=== PATIENT | female | born 1985 ===

== ENCOUNTER 2018-01-25 02:37 | Inpatient (IN) | payer OTHER ==
[2018-01-25 03:15] VITALS: BMI 36.0
[2018-01-25 03:43] LABS: BASO # 0.1 K/uL (0.0-0.2); BASO % 0.4 % (0.0-2.0); EOS # 0.1 K/uL (0.0-0.7); EOS % 0.8 % (0.0-4.0); HEMOGLOBIN 11.5 g/dL (11.0-16.0); LYMPH # 2.9 K/uL (1.0-4.3); LYMPH % 20.5 % (20.0-40.0); MEAN CELL VOLUME 81.2 fL (81.0-99.0); MEAN CORPUSCULAR HGB CONC 33.3 g/dL (33.0-37.0); MEAN PLATELET VOLUME 7.6 fL (7.2-11.7); MONO % 7.1 % (0.0-10.0); NEUT # 9.9 K/uL (1.8-7.0); NEUT % 71.2 % (50.0-75.0); RBC 4.25 Mil/uL (3.80-5.20); RED CELL DISTRIBUTION WIDTH 17.6 % (11.5-14.5)
[2018-01-25] MEDS ORDERED: Lactated Ringer's 1,000 ML IV ONE (03:43)
[2018-01-25] MEDS ORDERED: Lactated Ringer's 1,000 ML IV SCH (03:45)
[2018-01-25 03:52] LABS: SQUAMOUS EPITHIAL 1 /hpf (0-5); URINE BILIRUBIN NEGATIVE (NEGATIVE); URINE BLOOD 3+ (NEGATIVE); URINE CLARITY Clear (Clear); URINE COLOR Yellow (YELLOW); URINE GLUCOSE (UA) NORMAL (Normal); URINE LEUKOCYTE ESTERASE 1+ Leu/uL (Negative); URINE PROTEIN NEGATIVE (NEGATIVE); URINE UROBILINOGEN NORMAL mg/dL (0.2-1.0)
[2018-01-25 03:57] LABS: ALB/GLOB RATIO 0.9 (1.0-2.1); ALBUMIN 3.1 g/dL (3.5-5.0); ALT/SGPT 19 U/L (9-52); AST/SGOT 18 U/L (14-36); BLOOD UREA NITROGEN 5 mg/dL (7-17); CALCIUM 8.8 mg/dl (8.6-10.4); GFR AFRICAN-AMERICAN > 60; GFR NON-AFRICAN AMERICAN > 60
[2018-01-25] MEDS ORDERED: Bupivacaine HCl/FentaNYL Cit 100 ML EPI ONE ×2 (03:57→06:23)
--- NOTE | 2018-01-25 04:08 | OBHP ---
Datetime: 01/25/2018 04:07 EGA AdmitDate IP: 39.0 IP Indication for Induction: Not Applicable IP Chief Complaint: Uterine contractions; Maternal discomfort Datetime: 01/25/2018 03:57 IP Adm Impression: Term, intrauterine ; Active labor; Intact Membranes IP Admit Plan: Admit to unit; Initiate labor protocol Admit Comment, IP Provider: 39 weeks IUP in Active Labor Tracing reassuring Dr. Oates notified and will admit for vaginal delivery Pelvic Type - PN: Adequate Extremities - PN: Normal Abdomen - PN: Normal Back - PN: Normal Breast - PN: Not Done Lungs - PN: Normal Heart - PN: Normal Thyroid - PN: Normal Neurologic - PN: Normal HEENT - PN: Normal General - PN: Normal Presentation-Admit: Vertex IP Fetus A Comments: FHT's ressuring FHR - Baseline A Provider: 130 Membranes, Provider: Intact Contraction Comments Provider: Q 3-4 mins Gestation - Est Wks by US: 39.0 Vital Signs Provider: Reviewed NICHD Variability Prov Fetus A: Moderate 6-25bpm NICHD Accel Fetus A IP Provider: 10X10 NICHD Decel Fetus A IP Provider: None Dilatation, Provider: 4 Effacement, Provider: 90 Station, Provider: -1 Genitourinary Exam: Normal DTRs - PN: Normal
--- NOTE | 2018-01-25 04:30 | OBADHP ---
Datetime: 01/25/2018 04:07 Admit Comment, IP Provider: 32 yo female G1 with an IUP at 39 weeks Admitted in labor with intact membranes and fo vaginal delivery, per Dr. Oates reviewed and uneventful course GBS Negative Requesting an epidural and Anesthesia aware Labs and IV ordered Anticipate a vaginal delivery Pelvic Type - PN: Adequate Extremities - PN: Normal Abdomen - PN: Normal Back - PN: Normal Breast - PN: Not Done Lungs - PN: Normal Heart - PN: Normal Thyroid - PN: Normal Neurologic - PN: Normal HEENT - PN: Normal General - PN: Normal Presentation-Admit: Vertex FHR - Baseline A Provider: 130 Membranes, Provider: Intact Contraction Comments Provider: 3-4 Gestation - Est Wks by US: 39.0 Vital Signs Provider: Reviewed IP Chief Complaint: Uterine contractions; Maternal discomfort NICHD Variability Prov Fetus A: Moderate 6-25bpm NICHD Accel Fetus A IP Provider: 10X10 NICHD Decel Fetus A IP Provider: None Dilatation, Provider: 4 Effacement, Provider: 100 Station, Provider: -1 Genitourinary Exam: Normal DTRs - PN: Normal EGA AdmitDate IP: 39.0 IP Adm Impression: Term, intrauterine ; Active labor; Intact Membranes IP Admit Plan: Admit to unit; Initiate labor protocol Datetime: 01/25/2018 03:57 IP Fetus A Comments: FHT's ressuring
--- NOTE | 2018-01-25 06:56 | OBPN ---
Datetime: 01/25/2018 06:54 IP Progress Impression: Normal progression of labor IP Procedures: Artificial ROM; Sterile Vag Exam IP Progress Plan: Continue present management Contraction Comments Provider: irrg FHR - Baseline A Provider: 130 IP Progress Note Comment: pt was seen at bed side ve 8/100/0 start pitocin nticipate NICHD Accel Fetus A IP Provider: 15X15 FHR Category Provider Fetus A: Category I NICHD Variability Prov Fetus A: Moderate 6-25bpm Dilatation, Provider: 8 Effacement, Provider: 100 Station, Provider: 0 Datetime: 01/25/2018 06:52 Vital Signs Provider: Reviewed; Within Normal Limits Datetime: 01/25/2018 04:07 Membranes, Provider: Intact Gestation - Est Wks by US: 39.0 Presentation-Admit: Vertex NICHD Decel Fetus A IP Provider: None Datetime: 01/25/2018 03:57 IP Fetus A Comments: FHT's ressuring
--- NOTE | 2018-01-25 06:56 | OBADHP ---
Datetime: 01/25/2018 06:54 FHR - Baseline A Provider: 130 Contraction Comments Provider: irrg NICHD Variability Prov Fetus A: Moderate 6-25bpm NICHD Accel Fetus A IP Provider: 15X15 FHR Category Provider Fetus A: Category I Dilatation, Provider: 8 Effacement, Provider: 100 Station, Provider: 0 Datetime: 01/25/2018 06:52 Admit Comment, IP Provider: at 39+weeks came with c/o ctxs starrted at 12 am, q1-3 min , no vn , no lof+fm.pt is having too much pain obx primi pmh de med pnv all nkda psh de soch de ve 100/0 a/p at 39+week in active abor admit to l_d npo/ivf labs pain manage cot oc and efm anticipate Pelvic Type - PN: Adequate Extremities - PN: Normal Abdomen - PN: Normal Back - PN: Normal Breast - PN: Normal Lungs - PN: Normal Heart - PN: Normal Thyroid - PN: Normal Neurologic - PN: Normal HEENT - PN: Normal General - PN: Normal IP Hx Assessment: The History has been Reviewed and is Current Vital Signs Provider: Reviewed; Within Normal Limits IP Chief Complaint: Uterine contractions; Maternal discomfort Genitourinary Exam: Normal DTRs - PN: Normal EGA AdmitDate IP: 39.0 IP Adm Impression: Term, intrauterine ; Active labor IP Admit Plan: Admit to unit; Initiate labor protocol
[2018-01-25] MEDS ORDERED: Oxytocin 30 UNIT 30 UNITS/500 ML BAG IV ONE ×2 (07:08→07:14)
[2018-01-25] MEDS ORDERED: Bupivacaine 0.25% 20 ML INJ IJ ONE (07:30)
[2018-01-25] MEDS ORDERED: Bupivacaine HCl 0.5% PF (30 ml) Inj ONE (07:36)
[2018-01-25] MEDS ORDERED: Oxytocin 10 Units/ml Inj ONE (09:38)
[2018-01-25] MEDS ORDERED: Benzocaine/Menthol 20%-0.5% Topical Spray (60 ml) TOP PRN (10:15)
[2018-01-25] MEDS ORDERED: Oxycodone/Acetaminophen 5/325 mg Tab PO PRN ×2 (10:15)
--- NOTE | 2018-01-25 17:33 | OBDS ---
DELIVERY PERSONNEL Delivery Doctor: Nahum Oates MD Coal Chemist: Sheela Carlson RN Anesthesiologist: alexis MATERNAL INFORMATION Delivery Anesthesia: Epidural Medications in Delivery: pitocin 20 Estimated Blood Loss (ml): 150 Placenta Cultured: No Maternal Complications: None Provider Comments: baby deliverd in moi. cord around neck. mother stopped pushing. baby deliverd. 8/9 cord gas send end armani peads prsent no com LABOR SUMMARY EDC: 02/01/2018 00:00 No. Babies in Womb: 1 Attempted: No Labor Anesthesia: Epidural LABOR INFORMATION Onset of Labor: 01/25/2018 04:00 Complete Dilatation: 01/25/2018 09:26 Oxytocin: Augmentation Group B Beta Strep: Negative Steroids Given: None Reason Steroids Not Administered: Not Applicable MEMBRANES Membranes Rupture Method: Artificial Rupture of Membranes: 01/25/2018 06:45 Length of Rupture (hrs): 4.03 Amniotic Fluid Color: Clear Amniotic Fluid Amount: Small Amniotic Fluid Odor: Normal STAGES OF LABOR Stage 1 hrs: 5 Stage 1 min: 26 Stage 2 hrs: 1 Stage 2 min: 21 Stage 3 hrs: 0 Stage 3 min: 3 Total Time in Labor hrs: 6 Total Time in Labor min: 50 VAGINAL DELIVERY Episiotomy: Right Mediolateral Laceration Extension: N/A Laceration Type: None Laceration Repair Note: repaired with 2 and 3 chromic Initial Vag Sponge Count: 10 Final Vag Sponge Count: 10 Initial Vag Sharps Count: 2 Final Vag Sharps Count: 2 Sponge Count Correct: Yes Sharps Count Correct: Yes BABY A INFORMATION Delivery Date/Time: 01/25/2018 10:47 Method of Delivery: Vaginal Born in Route : No : N/A Forceps: N/A Vacuum Extraction: N/A Shoulder Dystocia : No SHOULDER DYSTOCIA BABY A Delivery Date/Time: 01/25/2018 10:47 PRESENTATION/POSITION BABY A Presentation: Cephalic Cephalic Presentation: Vertex Vertex Position: Left Occipital Anterior Breech Presentation: N/A PLACENTA INFORMATION BABY A Placenta Delivery Time : 01/25/2018 10:50 Placenta Method of Delivery: Spontaneous Placenta Status: Delivered SCORES BABY A Heart Rate 1 min: >100 bpm Resp Effort 1 min: Slow, Irregular Reflex Irritability 1 min: Cough or Sneeze or Pulls Away Muscle Tone 1 min: Active Motion Color 1 min: Body [place], Extremities Blue SCORE 1 MIN: 8 Heart Rate 5 min: >100 bpm Resp Effort 5 min: Good Cry Reflex Irritability 5 min: Cough or Sneeze or Pulls Away Muscle Tone 5 min: Active Motion Color 5 min: Body [place], Extremities Blue SCORE 5 MIN: 9 INFORMATION BABY A Gestational Age at Delivery: 39.0 Gestational Status: Term Outcome : Liveborn Infant Condition : Stable Infant Sex: Female IDENTIFICATION/MEDS BABY A ID Band Number: [id number] ID Band Location: Left Leg; Left Arm Sensor Number: [id number] Sensor Location : Cord Clamp WEIGHT/LENGTH BABY A Birthweight (gms): 3440 Weight (lb): 7 Infant Weight (oz): 9 Length Inches: 20.00 Infant Length cms: 50.8 CORD INFORMATION BABY A No. Cord Vessels: 3 Nuchal Cord : Around Neck x1, Loose Cord Blood Taken: Yes Suction: Mouth; Nose ASSESSMENT BABY A Complications: None Physical Findings at Delivery: Within Normal Limits Respirations: Sternal Retractions Title I Teacher/ALS Called : No Care By: dr nunez Transferred To: Nursery
--- NOTE | 2018-01-26 06:27 | OBPPN ---
Datetime: 01/26/2018 06:24 PP Pain Prov: Within normal limits PP Nausea Prov: Denies PP Flatus Prov: Yes PP Abdomen/Uterus Prov: Normal PP Extremities Prov: Normal PP Impression Prov: Normal progression PP Plan Prov: Continue present management PP Progress Note Prov: pt was seen at bed side, pain undeer control,no n/v, tolteraing deir,voiding, min lochia ppd#1 s/p cbc reg deit cont pp care cont pain manage Vital Signs Provider PP: Reviewed; Within Normal Limits
[2018-01-26 08:25] LABS: BASO # 0.1 K/uL (0.0-0.2); BASO % 0.4 % (0.0-2.0); EOS # 0.1 K/uL (0.0-0.7); EOS % 0.7 % (0.0-4.0); HEMOGLOBIN 10.5 g/dL (11.0-16.0); LYMPH # 3.7 K/uL (1.0-4.3); LYMPH % 23.6 % (20.0-40.0); MEAN CELL VOLUME 82.5 fL (81.0-99.0); MEAN CORPUSCULAR HEMOGLOBIN 26.9 pg (27.0-31.0); MEAN CORPUSCULAR HGB CONC 32.6 g/dL (33.0-37.0); MEAN PLATELET VOLUME 7.4 fL (7.2-11.7); MONO # 0.7 K/uL (0.0-0.8); MONO % 4.2 % (0.0-10.0); NEUT # 11.2 K/uL (1.8-7.0); NEUT % 71.1 % (50.0-75.0); RBC 3.89 Mil/uL (3.80-5.20); RED CELL DISTRIBUTION WIDTH 18.2 % (11.5-14.5); WHITE BLOOD COUNT 15.7 K/uL (4.8-10.8)
[2018-01-26] MEDS ORDERED: Measles, Mumps, and Rubella 0.5 ML VIAL SC ONE (17:43)
[2018-01-27 09:11] VITALS: BP 126/79; PULSE 82; RESP 18; TEMP 97.1; O2SAT 99
[2018-01-27] MEDS ORDERED: Tdap Vaccine 0.5 ml Vial (10-64 yrs) IM ONE (12:30)
[2018-01-27] MEDS ORDERED: Measles, Mumps, and Rubella 0.5 ML VIAL SC ONE (12:30)
== END 2018-01-27 16:44 | disposition home or self-care (01) | DRG 775 ==
LOC: C.EROB 02:37 → EDBD 03:00 → C.4D 03:00 → C.4M 14:21
PROVIDERS: ADMIT Obstetrics & Gynecology; ATTEND Obstetrics & Gynecology
PROC: 10E0XZZ Delivery of Products of Conception, External Approach (ICD-10-PCS; principal; 2018-01-25)
PROC: 0W8NXZZ Division of Female Perineum, External Approach (ICD-10-PCS; 2018-01-25)
PROC: 10907ZC Drainage of Amniotic Fluid, Therapeutic from Products of Conception, Via Natural or Artificial Opening (ICD-10-PCS; 2018-01-25)
DX: O69.81X0 Labor and delivery complicated by cord around neck, without compression, not applicable or unspecified (principal); Z3A.39 39 weeks gestation of pregnancy; Z37.0 Single live birth